=== PATIENT | female | born 1985 ===

== ENCOUNTER → 2018-01-14 | Emergency (ER) | payer OTHER ==
[~2018-01-14] VITALS: Ht 165.1 cm; Wt 56.7 kg
== END | disposition left against medical advice (07) ==
LOC: ER 10:20
DX: M54.2 Cervicalgia (principal)

== ENCOUNTER 2019-04-12 08:45 | Emergency (ER) | payer OTHER ==
[~2019-04-12] VITALS: Ht 165.1 cm; Wt 54.4 kg
== END 2019-04-12 14:32 | disposition home or self-care (01) ==
LOC: ER 08:45
DX: K52.9 Noninfective gastroenteritis and colitis, unspecified (principal)